=== PATIENT | female | born 1995 | race African-American/Black ===

== ENCOUNTER 2019-04-22 14:06 | Emergency (ER) | payer OTHER ==
[2019-04-22 15:14] VITALS: BP 117/68
--- NOTE | 2019-04-22 15:22 | REP ---
Clinical: Trauma . Comparison: None . Findings: The ventricles, sulci, and cisterns are normal in position and appearance. Hawley-white differentiation is maintained. No acute intracranial hemorrhage, mass/mass effect, pathology or trauma/injury. No evidence for acute infarction. No extra-axial fluid collection. Calvarium is intact. Paranasal sinuses and mastoid air cells are clear. Impression: Normal noncontrast head CT. No evidence for acute intracranial pathology or trauma/injury. Electronically Signed by Peng Terry MD 04/22/2019 03:14 P
--- NOTE | 2019-04-22 15:23 | REP ---
Clinical: Trauma . Technique: Axial noncontrast images from the skull base to the thoracic inlet with coronal and sagittal re-formations Findings: Normal alignment and lordosis is maintained. Cervical vertebral bodies including transverse processes and spinous processes are intact and there is no evidence for acute fracture / compression injury or subluxation. Spinal canal is patent. Posterior elements are intact. Paravertebral soft tissues are normal. Impression: Normal noncontrast cervical spine CT. No evidence for acute pathology or trauma/injury. Electronically Signed by Peng Terry MD 04/22/2019 03:15 P
== END 2019-04-22 15:31 | disposition home or self-care (01) ==
LOC: M ED 14:06
DX: S16.1XXA Strain of muscle, fascia and tendon at neck level, initial encounter (principal); S00.03XA Contusion of scalp, initial encounter; V43.62XA Car passenger injured in collision with other type car in traffic accident, initial encounter; Y92.9 Unspecified place or not applicable; Y93.9 Activity, unspecified; Y99.9 Unspecified external cause status

== ENCOUNTER 2019-08-12 12:56 | Emergency (ER) | payer OTHER ==
[~2019-08-12] VITALS: Ht 152.4 cm; Wt 70.5 kg
[2019-08-12] MEDS: ACETAMINOPHEN TAB 650MG DOSE (2X325MG) PO ONE (13:59)
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
--- NOTE | 2019-08-12 14:26 | REP ---
HISTORY: Trauma. TECHNIQUE: 4.5 mm contiguous transaxial sections were obtained from the skull base to the cerebral convexities with thin cuts through the posterior fossa without the administration of intravenous contrast. FINDINGS: The ventricles and sulci are consistent with the patient's age. There are no extra-axial fluid collections. There is no mass effect. The deep cerebral white matter is consistent with the patient's age. The orbital and petrous structures , cerebellopontine angles, and posterior fossa are unremarkable. The sella turcica, cavernous, and paracavernous structures are essentially unremarkable. The visualized portions of the paranasal sinuses and mastoid air cells are clear. Images of the skull base show no gross abnormality. IMPRESSION: Essentially unremarkable CT examination of the brain. No change from the prior exam. Electronically Signed by Rishi Pleitez DO 08/12/2019 02:48 P
[2019-08-12 14:58] LABS: HCG, SERUM QUALITATIVE NEGATIVE (NEGATIVE)
[2019-08-12 15:10] VITALS: BP 124/74
== END 2019-08-12 15:11 | disposition home or self-care (01) ==
LOC: M ED 12:56
DX: Z04.1 Encounter for examination and observation following transport accident (principal); S09.90XA Unspecified injury of head, initial encounter; S16.1XXA Strain of muscle, fascia and tendon at neck level, initial encounter; V43.62XA Car passenger injured in collision with other type car in traffic accident, initial encounter; Y92.410 Unspecified street and highway as the place of occurrence of the external cause; Y93.89 Activity, other specified; Y99.8 Other external cause status

== ENCOUNTER 2019-10-17 14:04 | Emergency (ER) | payer OTHER ==
[~2019-10-17] VITALS: Ht 152.4 cm; Wt 79.7 kg
[2019-10-17] MEDS ORDERED: PREN1TAB14 (14:11)
[2019-10-17] MEDS ORDERED: ONDANSETRON 4 MG ORAL DISINTEGRATING TAB (Q0162 PER 1MG) PO ONE (16:30)
[2019-10-17 16:51] LABS: APPEARANCE, URINE CLOUDY (CLEAR); BACTERIA, URINE AUTO 3+ (NEGATIVE); BILIRUBIN, URINE AUTO NEGATIVE (NEGATIVE); BLOOD, URINE BLOOD NEGATIVE (NEGATIVE); COLOR, URINE AMBER (YELLOW); GLUCOSE, URINE (UA) AUTO NEGATIVE (NEGATIVE); KETONE, URINE AUTO TRACE mg/dL (NEGATIVE); LEUKOCYTE ESTERASE, URINE AUTO NEGATIVE (NEGATIVE); MUCUS, URINE LARGE (NEGATIVE); NITRITE, URINE AUTO NEGATIVE (NEGATIVE); PROTEIN, URINE AUTO 1+ mg/dL (NEGATIVE); RBC, URINE AUTO 3 /HPF (0-3); SPECIFIC GRAVITY URINE AUTO 1.033 (1.002-1.035); SQUAMOUS EPITHELIAL CELL UR AU 3 /HPF (0-6); UROBILINOGEN, URINE AUTO 0.2 mg/dL (0.0-2.0); WBC, URINE AUTO 6 /HPF (0-3)
[2019-10-17] MEDS ORDERED: ONDA4TAB6 PO (17:11)
[2019-10-17] MEDS ORDERED: PYRI25TA3 PO (17:11)
[2019-10-17] MEDS ORDERED: UNIS25TA3 PO (17:11)
[2019-10-17 17:23] VITALS: BP 124/68
== END 2019-10-17 17:40 | disposition home or self-care (01) ==
LOC: M ED 14:04
DX: O21.9 Vomiting of pregnancy, unspecified (principal); Z3A.01 Less than 8 weeks gestation of pregnancy
CPT/HCPCS: 81001; 87086; 99283; Q0162

== ENCOUNTER 2019-12-06 07:47 | Emergency (ER) | payer OTHER ==
[~2019-12-06] VITALS: Ht 152.4 cm; Wt 78.2 kg
[~2019-12-06 07:47] MED LIST: ONDA4TAB6 PO; PREN1TAB14; PYRI25TA3 PO; UNIS25TA3 PO
[2019-12-06 07:48] VITALS: BP 142/92
[2019-12-06] MEDS ORDERED: KEFL500C17 PO (08:40)
== END 2019-12-06 08:45 | disposition home or self-care (01) ==
LOC: M ED 07:47
DX: J03.90 Acute tonsillitis, unspecified (principal)

== ENCOUNTER 2020-01-19 13:46 | Emergency (ER) | payer OTHER ==
[~2020-01-19] VITALS: Ht 152.4 cm; Wt 79.6 kg
[~2020-01-19 13:46] MED LIST changes: +KEFL500C17 PO
[2020-01-19 14:26] LABS: BASO # 0.1 10^3/uL (0.0-0.2); BASO % 0.4 % (0.0-1.0); EOS # 0.1 10^3/uL (0.0-0.5); HEMATOCRIT 38.9 % (36.0-47.0); HEMOGLOBIN 12.4 g/dl (12.0-15.5); LYMPH # 2.6 10^3/uL (1.5-5.0); LYMPH % 20.9 % (24.0-44.0); MEAN CORPUSCULAR HGB CONC 31.9 g/dl (32.0-36.5); MEAN CORPUSCULAR VOLUME 84.7 fl (80.0-96.0); MONO # 0.7 10^3/uL (0.0-0.8); MONO % 5.6 % (0.0-5.0); NEUTROPHILS # 8.8 10^3/uL (1.5-8.5); NEUTROPHILS % 71.9 % (36.0-66.0); PLATELET COUNT, AUTOMATED 321 10^3/uL (150-450); RED BLOOD COUNT 4.59 10^6/uL (4.00-5.40); WHITE BLOOD COUNT 12.2 10^3/uL (4.0-10.0)
[2020-01-19 14:55] LABS: ALBUMIN 3.2 GM/DL (3.2-5.2); ALT/SGPT 17 U/L (12-78); BILIRUBIN,DIRECT < 0.1 MG/DL (0.0-0.2); BILIRUBIN,TOTAL 0.5 MG/DL (0.2-1.0); BLOOD UREA NITROGEN 11 MG/DL (7-18); CALCIUM LEVEL 8.8 MG/DL (8.5-10.1); CARBON DIOXIDE LEVEL 24 MEQ/L (21-32); CHLORIDE LEVEL 106 MEQ/L (98-107); CREATININE FOR GFR 0.84 MG/DL (0.55-1.30); GLOMERULAR FILTRATION RATE > 60.0 (>60); GLUCOSE, FASTING 120 MG/DL (70-100); LIPASE 136 U/L (73-393); POTASSIUM SERUM 4.1 MEQ/L (3.5-5.1); SODIUM LEVEL 138 MEQ/L (136-145); TOTAL PROTEIN 7.4 GM/DL (6.4-8.2)
[2020-01-19 15:58] VITALS: BP 143/82
[2020-01-19] MEDS ORDERED: ACETAMINOPHEN 325 MG TAB PO ONE (16:00)
[2020-01-19] MEDS ORDERED: IBUPROFEN 800 MG TAB PO ONE (16:00)
[2020-01-19] MEDS ORDERED: LOES1TAB12 PO (16:02)
[2020-01-19] MEDS ORDERED: ZOFR8TAB24 PO (16:02)
--- NOTE | 2020-01-19 16:15 | REP ---
PELVIC ULTRASOUND: Real-time sonographic evaluation of pelvis performed utilizing transabdominal technique. Bladder measures 4.1 x 2.9 x 7.1 cm. Uterus measures 7.6 x 4.5 x 5.1 cm. Endometrial thickness is 6 mm with no endometrial fluid collection. Ovaries are normal in size and echotexture, right ovary measuring 2.1 x 1.3 x 2.0 cm and left ovary 2.7 x 1.3 x 1.5 cm. There is no adnexal mass or free fluid. There is no evidence of ovarian torsion with duplex Doppler evaluation. Patient declined endovaginal ultrasound. IMPRESSION: Negative transabdominal pelvic ultrasound. Electronically Signed by Tristan Hawley MD 01/19/2020 04:24 P
== END 2020-01-19 16:18 | disposition home or self-care (01) ==
LOC: M ED 13:46
DX: N92.0 Excessive and frequent menstruation with regular cycle (principal); R10.2 Pelvic and perineal pain; R00.0 Tachycardia, unspecified; Z79.3 Long term (current) use of hormonal contraceptives

== ENCOUNTER 2021-07-01 20:44 | Emergency (ER) | payer OTHER ==
[~2021-07-01] VITALS: Ht 154.9 cm; Wt 75.4 kg
[2021-07-01 20:44] VITALS: BP 143/85
[~2021-07-01 20:44] MED LIST changes: +LOES1TAB12 PO; +ZOFR8TAB24 PO
[2021-07-01] MEDS ORDERED: CELE1CAP9 PO (21:45)
[2021-07-01] MEDS ORDERED: CYCL5TAB PO (21:45)
[2021-07-03] MEDS ORDERED: METH-1164 PO (13:12)
[2021-07-03] MEDS ORDERED: LIDO5DIS41 TOP (13:12)
== END 2021-07-02 01:55 | disposition left against medical advice (07) ==
LOC: M ED 20:44
DX: Z53.29 Procedure and treatment not carried out because of patient's decision for other reasons (principal)

== ENCOUNTER 2021-07-03 06:03 | Emergency (ER) | payer OTHER ==
[~2021-07-03] VITALS: Ht 154.9 cm; Wt 72.7 kg
[~2021-07-03 06:03] MED LIST changes: +CELE1CAP9 PO; +CYCL5TAB PO
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
[2021-07-03] MEDS ORDERED: LIDOCAINE 5% (LIDODERM) PATCH TD ONE (12:30)
[2021-07-03] MEDS ORDERED: ACETAMINOPHEN 500 MG TAB PO ONE (12:30)
[2021-07-03 12:43] LABS: APPEARANCE, URINE TURBID (CLEAR); BACTERIA, URINE AUTO NEGATIVE (NEGATIVE); BILIRUBIN, URINE AUTO NEGATIVE (NEGATIVE); BLOOD, URINE BLOOD NEGATIVE (NEGATIVE); COLOR, URINE YELLOW (YELLOW); GLUCOSE, URINE (UA) AUTO NEGATIVE (NEGATIVE); KETONE, URINE AUTO NEGATIVE (NEGATIVE); LEUKOCYTE ESTERASE, URINE AUTO NEGATIVE (NEGATIVE); NITRITE, URINE AUTO NEGATIVE (NEGATIVE); PROTEIN, URINE AUTO NEGATIVE (NEGATIVE); RBC, URINE AUTO 0 /HPF (0-3); SPECIFIC GRAVITY URINE AUTO 1.025 (1.002-1.035); SQUAMOUS EPITHELIAL CELL UR AU 2 /HPF (0-6); WBC, URINE AUTO 0 /HPF (0-3)
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
[2021-07-03] MEDS ORDERED: METH-1164 PO (13:12)
[2021-07-03] MEDS ORDERED: LIDO5DIS41 TOP (13:12)
[2021-07-03 13:38] VITALS: BP 141/87
[2021-07-03] MEDS ORDERED: **NOTE PATIENT COMMENT** MISC XX SCH (21:00)
== END 2021-07-03 13:39 | disposition home or self-care (01) ==
LOC: M ED 06:03
DX: S39.012A Strain of muscle, fascia and tendon of lower back, initial encounter (principal); X58.XXXA Exposure to other specified factors, initial encounter; Y92.89 Other specified places as the place of occurrence of the external cause

== ENCOUNTER 2021-11-10 15:29 | Emergency (ER) | payer OTHER ==
[~2021-11-10] VITALS: Ht 154.9 cm; Wt 77.4 kg
[~2021-11-10 15:29] MED LIST changes: +LIDO5DIS41 TOP; +METH-1164 PO
[2021-11-10] MEDS ORDERED: BOOSTRIX/ADACEL VACCINE (DIPHTH/PERTUSS/ACELL/TETANUS) 0.5ML SYR IM ONE (19:20)
[2021-11-10] MEDS ORDERED: ACETAMINOPHEN 500 MG TAB PO ONE (19:20)
[2021-11-10] MEDS ORDERED: BACITRACIN OINTMENT 30GM TUBE TOP ONE (19:25)
[2021-11-10 20:07] VITALS: BP 113/71
== END 2021-11-10 20:09 | disposition home or self-care (01) ==
LOC: M ED 15:29
DX: S61.310A Laceration without foreign body of right index finger with damage to nail, initial encounter (principal); W26.0XXA Contact with knife, initial encounter; Y92.9 Unspecified place or not applicable; Y93.G3 Activity, cooking and baking; Y99.1 Military activity

== ENCOUNTER → 2022-01-16 | Outpatient (CLI) | payer OTHER | LOC: M CARPUL 10:33 | PROVIDERS: ATTEND Internal Medicine | DX: I51.9 Heart disease, unspecified (principal) ==

== ENCOUNTER → 2022-01-16 | Outpatient (REF) | LOC: M PLAIMG 13:18 | PROVIDERS: ATTEND Internal Medicine | DX: R06.02 Shortness of breath (principal) ==